=== PATIENT | male | born 1995 | race Caucasian/White ===

== ENCOUNTER 2019-04-28 20:58 | Emergency (ER) | payer OTHER ==
[~2019-04-28] VITALS: Ht 185.4 cm; Wt 52.2 kg
[~2019-04-28 20:58] MED LIST: IBUPROFEN 800800 M1 PO; NAPROSYN500 MG PO; NORCO 5-325 TA1 EACH PO; PENICILLIN V P500 MG PO; PENICILLIN VK500 M1 PO; PENICILLIN VK500 MG PO; PHENERGAN 25 MG25 MG PO; PROMS25 WY RECTAL; TRAMADOL 50 MG50 MG PO; ULTRAM 50MG TAB50 MG PO; ZOFRAN4 MG PO
[2019-04-28 21:09] VITALS: BP 145/95
[2019-04-28] MEDS ORDERED: PENICILLIN V P500 MG PO (21:41)
[2019-04-28] MEDS ORDERED: PERIDEX 0.12%473 M1 SWISH&SPIT (21:41)
[2019-04-28] MEDS ORDERED: ACETAMINOPHEN-1 EAC2 PO (21:41)
[2019-04-28] MEDS ORDERED: IBUPROFEN 800800 M1 PO (21:41)
== END 2019-04-28 21:57 | disposition home or self-care (01) ==
LOC: M.ERS 20:58
DX: K04.7 Periapical abscess without sinus (principal); F17.210 Nicotine dependence, cigarettes, uncomplicated

== ENCOUNTER 2019-05-11 21:32 | Emergency (ER) | payer OTHER ==
[~2019-05-11] VITALS: Ht 185.4 cm; Wt 52.2 kg
[~2019-05-11 21:32] MED LIST changes: +ACETAMINOPHEN-1 EAC2 PO; +PERIDEX 0.12%473 M1 SWISH&SPIT
[2019-05-11] MEDS ORDERED: ZYRTEC 10 MG TA10 MG PO (21:43)
[2019-05-11] MEDS ORDERED: PREDNISONE 20 M20 M1 PO (21:43)
[2019-05-11] MEDS ORDERED: PEPCID40 MG PO (21:43)
[2019-05-11 21:56] VITALS: BP 127/82
== END 2019-05-11 21:55 | disposition home or self-care (01) ==
LOC: M.ERS 21:32
DX: L50.9 Urticaria, unspecified (principal); L53.9 Erythematous condition, unspecified; F17.210 Nicotine dependence, cigarettes, uncomplicated

== ENCOUNTER 2019-05-14 09:33 | Emergency (ER) | payer OTHER ==
[~2019-05-14] VITALS: Ht 185.4 cm; Wt 52.2 kg
[~2019-05-14 09:33] MED LIST changes: +PEPCID40 MG PO; +PREDNISONE 20 M20 M1 PO; +ZYRTEC 10 MG TA10 MG PO
[2019-05-14 10:50] VITALS: BP 135/66
== END 2019-05-14 10:51 | disposition home or self-care (01) ==
LOC: M.ERS 09:33
DX: L50.9 Urticaria, unspecified (principal); F17.210 Nicotine dependence, cigarettes, uncomplicated

== ENCOUNTER 2019-05-14 23:30 | Emergency (ER) | payer OTHER ==
[~2019-05-14] VITALS: Ht 185.4 cm; Wt 52.2 kg
[2019-05-15 01:04] VITALS: BP 112/66
== END 2019-05-15 01:04 | disposition home or self-care (01) ==
LOC: M.ERS 23:30
DX: L53.1 Erythema annulare centrifugum (principal); F17.210 Nicotine dependence, cigarettes, uncomplicated